=== PATIENT | female | born 1950 | race Caucasian/White ===

== ENCOUNTER 2024-06-12 06:46 | Day surgery (SDC) | payer MEDICARE, OTHER, SELFPAY ==
--- NOTE | 2024-06-11 11:56 | HPS.HSE ---
Family Physician
-
Family Physician: NO INTERVIEW UNKNOWN
Chief Complaint
-
Persistent atrial fibrillation.
History of Present Illness
The patient is a 74-year-old morbidly obese, female presenting today for persistent atrial fibrillation. She was diagnosed with atrial fibrillation 3 years ago. Soon after her diagnosis, she would undergo a cardioversion. She did maintain
normal sinus rhythm after her cardioversion for approximately 2 years. As of early January 2024, however, her arrhythmia returned. The patient reports shortness of breath with exertion, palpitations, and dizziness associated with this diagnosis.
She is rate controlled without the use of pharmacological therapy. She reports she has been compliant with Xarelto for oral anticoagulation. She notes that her current symptoms greatly interfere with her activities of daily living and overall impact
her quality of life. She is interested in pursuing pulmonary vein isolation for further arrhythmia management. Prior to undergoing pulmonary vein isolation, she will need a transesophageal echocardiogram to definitively rule out a left atrial
appendage thrombus. She denies complaints today such as chest pain and shortness of breath at rest, nausea, vomiting, lightheadedness, cough, sore throat, or fever. She does report 1 recent episode of diarrhea, but blames this episode on underlying
'dietary issues'.
Medical History
Past Medical History
Past Medical History: Reports Other
Additional Past Medical History:
1. Persistent atrial fibrillation, status post cardioversion; oral anticoagulation with Xarelto.
2. Hypertension.
3. Hypercholesterolemia.
4. Right bundle branch block.
5. Chronic diastolic heart failure, preserved ejection fraction.
6. Mild mitral regurgitation.
7. Moderate tricuspid regurgitation.
8. Childhood asthma.
9. Obstructive sleep apnea, noncompliant with CPAP.
10. GERD.
11. Colon polyps.
12. Diverticulosis.
13. Migraines.
14. Vertigo.
15. CVA per records.
16. Restless leg syndrome.
17. Lumbar degenerative disc disease.
18. Osteoarthritis, status post left total knee arthroplasty, 2013, and right total knee arthroplasty 2021.
19. Gout.
20. Recent right lower extremity cellulitis, treated with Cefuroxime.
21. Hodgkin's lymphoma, diagnosed 2018, status post chemotherapy; in remission.
22. Herpes simplex virus.
23. RSV 03/2023.
24. Depression.
25. Morbidly obese, BMI 45.0.
26. Cannibis dependence.
Past Surgical History: Reports Other
Additional Past Surgical History:
1. Cardioversion.
2. Left total knee arthroplasty.
3. Right total knee arthroplasty.
4. Lumbar laminectomy.
5. Left total ankle replacement.
6. Right ankle fusion.
7. Cholecystectomy.
8. Mastoidectomy.
9. .
10. Bilateral tubal ligation.
11. Lymph node excision.
12. Tonsillectomy.
13. Colonoscopy x5.
14. Endoscopy x2.
Social History
Tobacco: Non-smoker
Alcohol: Other (She reportedly drinks 4-5 alcoholic beverages per month.)
Drug: Marijuana (She smokes a 'couple puffs' nightly for her restless leg syndrome.)
Personal:
Living: Other (She lives with her in a 2 story home. )
Family History
Family History: Not pertinent
Allergies / Home Medications
Allergy/Medication List:
Home medications:
1. Acetaminophen 1000 mg p.o. every 6 hours as needed.
2. Albuterol-budesonide 2 inhalations every 6 hours as needed.
3. Atorvastatin 20 mg p.o. daily.
4. Fioricet 1 tablet p.o. every 6 hours as needed.
5. Cefuroxime 500 mg p.o. every 12 hours for 7 days.
6. Celebrex 200 mg p.o. daily.
7. Clindamycin 300 mg p.o. daily as needed before dental procedures.
8. Colace 100 mg p.o. daily as needed.
9. Furosemide 40 mg p.o. every evening.
10. Furosemide 40 mg p.o. every Sunday, Sunday, , and Sunday morning.
11. Furosemide 80 mg p.o. every Sunday, Sunday, and Sunday evening.
12. Lansoprazole 30 mg p.o. daily.
13. Montelukast 10 mg p.o. daily.
14. Xarelto 20 mg p.o. daily.
15. Ropinirole 2 mg p.o. at bedtime.
16. Senokot 8.6 mg p.o. daily as needed.
17. Sertraline 100 mg p.o. daily.
18. Spironolactone 25 mg p.o. every afternoon.
19. Ubrogepant 50 mg p.o. daily as needed.
20. Valacyclovir 500 mg p.o. daily.
Allergies: Adhesive tape. Demerol. Penicillin. Pollen.
Review of Systems
-
A 12 point ROS was completed and negative except as noted: Yes
Physical Exam
Vital Signs
Blood pressure 111/71. Heart rate 82. Respirations 18. Pulse ox 97% on room air.
Height 5 feet, 1 inch. Weight 108 kg. BMI 45.0.
Physical Exam
General: Well Developed, Well Nourished and No Apparent Distress
HEENT: NormoCephalic, Moist mucous membranes, Atraumatic and PERRLA
Respiratory: Clear
Cardiac: Irregular Rhythm
GI: Soft, Non Tender, Non Distended and Other (Morbidly obese. )
Musculoskeletal: Normal Gait & Station and Other (Right lower extremity cellulitis noted (undergoing treatment). )
Skin: Warm and Dry
Neuro: AO x 3 and Nonfocal/grossly intact
Laboratory Results
-
DIAGNOSTIC STUDIES as of 06/05/2024: White blood cell count 6.6. Hemoglobin 13.1. Platelet count 236,000. PT 27.9. INR 2.56. Sodium 137. Potassium 3.7. BUN 19. Creatinine 0.9. Glucose 100. Calcium 8.7. Magnesium 2.1. AST 24. ALT 23. Albumin 4.5.
Type and screen A positive.
EKG 06/05/2024: Atrial fibrillation with premature ventricular or aberrantly conducted complexes. Non-specific intraventricular conduction block.
Chest CT 06/05/2024: Normal, conventional pulmonary venous anatomy. Incomplete contrast filling versus thrombus in the anterior aspect of the left atrial appendage.
Echocardiogram 01/22/2024: Ejection fraction is 50-55%. Mild left ventricular hypertrophy. Moderately dilated left atrium. There is moderate tricuspid regurgitation and mild mitral regurgitation. Study was done while patient was in atrial
fibrillation.
Impression/Plan
-
IMPRESSION/PLAN:
1. Persistent atrial fibrillation: The patient is in need of pulmonary vein isolation with Dr. Suhas Velasquez on 06/16/2024. Prior to undergoing this, however, she will undergo a transesophageal echocardiogram with Dr. Khushi Neri on
06/12/2024 to definitively rule out a left atrial appendage thrombus. The benefits and risks of this procedure have been explained to the patient. The patient understands these risks and wishes to proceed.
== END 2024-06-12 09:58 | disposition home or self-care (01) ==
LOC: CATH 06:46
PROVIDERS: ATTENDING PHYSICIAN Internal Medicine Cardiovascular Disease; FAMILY PHYSICIAN Family Medicine; OTHER PHYSICIAN Internal Medicine Cardiovascular Disease
DX: I48.19 Other persistent atrial fibrillation (principal); I08.3 Combined rheumatic disorders of mitral, aortic and tricuspid valves; I08.8 Other rheumatic multiple valve diseases; E66.01 Morbid (severe) obesity due to excess calories; E78.00 Pure hypercholesterolemia, unspecified; I11.0 Hypertensive heart disease with heart failure; I45.10 Unspecified right bundle-branch block; Z79.01 Long term (current) use of anticoagulants; G47.33 Obstructive sleep apnea (adult) (pediatric); K21.9 Gastro-esophageal reflux disease without esophagitis; Z86.0100 Personal history of colon polyps, unspecified; K57.90 Diverticulosis of intestine, part unspecified, without perforation or abscess without bleeding; R42 Dizziness and giddiness; Z86.73 Personal history of transient ischemic attack (TIA), and cerebral infarction without residual deficits; G25.81 Restless legs syndrome; M19.90 Unspecified osteoarthritis, unspecified site; Z96.653 Presence of artificial knee joint, bilateral; M10.9 Gout, unspecified; Z92.21 Personal history of antineoplastic chemotherapy; Z85.71 Personal history of Hodgkin lymphoma; B00.9 Herpesviral infection, unspecified; Z68.42 Body mass index [BMI] 45.0-49.9, adult; F32.A Depression, unspecified; F12.20 Cannabis dependence, uncomplicated; Z90.49 Acquired absence of other specified parts of digestive tract; Z90.89 Acquired absence of other organs; Z79.899 Other long term (current) drug therapy; Z79.624 Long term (current) use of inhibitors of nucleotide synthesis; Z79.1 Long term (current) use of non-steroidal anti-inflammatories (NSAID); Z88.0 Allergy status to penicillin; Z88.5 Allergy status to narcotic agent
CPT/HCPCS: 93312; 93320; 93325

== ENCOUNTER 2024-06-16 05:48 | Day surgery (SDC) | payer MEDICARE, OTHER, SELFPAY ==
[2024-06-05 13:04] VITALS: BMI 45.0
--- NOTE | 2024-06-05 14:30 | HPS.HSE ---
Family Physician
-
Family Physician: NO INTERVIEW UNKNOWN
Chief Complaint
-
Persistent atrial fibrillation.
History of Present Illness
The patient is a 74-year-old morbidly obese, female presenting today for persistent atrial fibrillation. She was diagnosed with atrial fibrillation 3 years ago. Soon after her diagnosis, she would undergo a cardioversion. She did maintain
normal sinus rhythm after her cardioversion for approximately 2 years. As of early January 2024, however, her arrhythmia returned. The patient reports shortness of breath with exertion, palpitations, and dizziness associated with this diagnosis.
She is rate controlled without the use of pharmacological therapy. She reports she has been compliant with Xarelto for oral anticoagulation. She notes that her current symptoms greatly interfere with her activities of daily living and overall impact
her quality of life. She is interested in pursuing pulmonary vein isolation for further arrhythmia management. She denies complaints today such as chest pain and shortness of breath at rest, nausea, vomiting, lightheadedness, cough, sore throat, or
fever. She does report 1 recent episode of diarrhea, but blames this episode on underlying 'dietary issues'.
Medical History
Past Medical History
Past Medical History: Reports Other
Additional Past Medical History:
1. Persistent atrial fibrillation, status post cardioversion; oral anticoagulation with Xarelto.
2. Hypertension.
3. Hypercholesterolemia.
4. Right bundle branch block.
5. Chronic diastolic heart failure, preserved ejection fraction.
6. Mild mitral regurgitation.
7. Moderate tricuspid regurgitation.
8. Childhood asthma.
9. Obstructive sleep apnea, noncompliant with CPAP.
10. GERD.
11. Colon polyps.
12. Diverticulosis.
13. Migraines.
14. Vertigo.
15. CVA per records.
16. Restless leg syndrome.
17. Lumbar degenerative disc disease.
18. Osteoarthritis, status post left total knee arthroplasty, 2013, and right total knee arthroplasty 2021.
19. Gout.
20. Recent right lower extremity cellulitis, treated with Cefuroxime.
21. Hodgkin's lymphoma, diagnosed 2019, status post chemotherapy; in remission.
22. Herpes simplex virus.
23. RSV 03/2023.
24. Depression.
25. Morbidly obese, BMI 45.0.
26. Cannibis dependence.
Past Surgical History: Reports Other
Additional Past Surgical History:
1. Cardioversion.
2. Left total knee arthroplasty.
3. Right total knee arthroplasty.
4. Lumbar laminectomy.
5. Left total ankle replacement.
6. Right ankle fusion.
7. Cholecystectomy.
8. Mastoidectomy.
9. .
10. Bilateral tubal ligation.
11. Lymph node excision.
12. Tonsillectomy.
13. Colonoscopy x5.
14. Endoscopy x2.
Social History
Tobacco: Non-smoker
Alcohol: Other (She reportedly drinks 4-5 alcoholic beverages per month. )
Drug: Marijuana (She smokes a 'couple puffs' nightly for her restless leg syndrome. )
Personal:
Living: Other (She lives with her in a 2 story home. )
Family History
Family History: Not pertinent
Allergies / Home Medications
Allergy/Medication List:
Home medications:
1. Acetaminophen 1000 mg p.o. every 6 hours as needed.
2. Albuterol-budesonide 2 inhalations every 6 hours as needed.
3. Atorvastatin 20 mg p.o. daily.
4. Fioricet 1 tablet p.o. every 6 hours as needed.
5. Cefuroxime 500 mg p.o. every 12 hours for 7 days.
6. Celebrex 200 mg p.o. daily.
7. Clindamycin 300 mg p.o. daily as needed before dental procedures.
8. Colace 100 mg p.o. daily as needed.
9. Furosemide 40 mg p.o. every evening.
10. Furosemide 40 mg p.o. every Sunday, Sunday, , and Sunday morning.
11. Furosemide 80 mg p.o. every Sunday, Sunday, and Sunday evening.
12. Lansoprazole 30 mg p.o. daily.
13. Montelukast 10 mg p.o. daily.
14. Xarelto 20 mg p.o. daily.
15. Ropinirole 2 mg p.o. at bedtime.
16. Senokot 8.6 mg p.o. daily as needed.
17. Sertraline 100 mg p.o. daily.
18. Spironolactone 25 mg p.o. every afternoon.
19. Ubrogepant 50 mg p.o. daily as needed.
20. Valacyclovir 500 mg p.o. daily.
Allergies: Adhesive tape. Demerol. Penicillin. Pollen.
Review of Systems
-
A 12 point ROS was completed and negative except as noted: Yes
Physical Exam
Vital Signs
Blood pressure 111/71. Heart rate 82. Respirations 18. Pulse ox 97% on room air.
Height 5 feet, 1 inch. Weight 108 kg. BMI 45.0.
Physical Exam
General: Well Developed, Well Nourished and No Apparent Distress
HEENT: NormoCephalic, Moist mucous membranes, Atraumatic and PERRLA
Respiratory: Clear
Cardiac: Irregular Rhythm
GI: Soft, Non Tender, Non Distended and Other (Morbidly obese. )
Musculoskeletal: Normal Gait & Station and Other (Right lower extremity cellulitis noted (undergoing treatment). )
Skin: Other (Right lower extremity cellulitis. )
Neuro: AO x 3 and Nonfocal/grossly intact
Laboratory Results
-
DIAGNOSTIC STUDIES as of 06/05/2024: White blood cell count 6.6. Hemoglobin 13.1. Platelet count 236,000. PT 27.9. INR 2.56. Sodium 137. Potassium 3.7. BUN 19. Creatinine 0.9. Glucose 100. Calcium 8.7. Magnesium 2.1. AST 24. ALT 23. Albumin 4.5.
Type and screen A positive.
EKG 06/05/2024: Atrial fibrillation with premature ventricular or aberrantly conducted complexes. Non-specific intraventricular conduction block.
Chest CT 06/05/2024: Normal, conventional pulmonary venous anatomy. Incomplete contrast filling versus thrombus in the anterior aspect of the left atrial appendage.
Echocardiogram 01/22/2024: Ejection fraction is 50-55%. Mild left ventricular hypertrophy. Moderately dilated left atrium. There is moderate tricuspid regurgitation and mild mitral regurgitation. Study was done while patient was in atrial
fibrillation.
Impression/Plan
-
IMPRESSION/PLAN:
1. Persistent atrial fibrillation: The patient is in need of pulmonary vein isolation with Dr. Suhas Velasquez on 06/16/2024. The benefits and risks of the procedure have been explained to the patient. The patient understands these risks and
wishes to proceed. She is aware to continue Xarelto uninterrupted prior to her procedure. She will take no medications the morning of her ablation. Given her pre-ablation chest CT could not definitively rule out a left atrial appendage thrombus, she
will need to undergo a transesophageal echocardiogram prior. This has been scheduled for 06/12/[address] Khushi Neri.
2. Recent right lower extremity cellulitis: The patient notified Dr. Velasquez's office of this recent diagnosis through phone call on 06/03/2023. She was examined at the start of antibiotic therapy during preadmission testing. She was advised to
update Dr. Velasquez's office should her cellulitis not improve with Cefuroxime or should it worsen. She was also advised to call her primary care physician if further treatment is needed.
[2024-06-16] VITALS (12 sets, daily range): BP systolic 122–147; BP diastolic 51–77; BMI 46.3
--- NOTE | 2024-06-16 07:27 | ITS.CL.ABL ---
[employer] - Ablation
Ablation
Procedure Report:
ELECTROPHYSIOLOGIC STUDY AND POSSIBLE ABLATION
DATE: June 16, 2024
Primary Care Provider: DR Laury Chow
Primary Drivability Technician: Dr Emmanuel Sebastian
INDICATION:
Symptomatic Atrial Fibrillation.
Persistent
HISTORY: See H and P.
Symptomatic AF, poorly controlled with attempted medical therapy
HAS-BLED: 2
Age
h/o CVA
CHADSVASc: 6
CHF, NYHA Class 3, HFpEF
HTN
Age
h/o Stroke
Gender
PRESENTING RHYTHM: AF
HISTORY: See H and P.
Symptomatic AF, poorly controlled with attempted medical therapy.
ANTICOAGULATION: Rivaroxaban
'TIME-OUT': called and confirmed.
SEDATION/ANESTHESIA: provided via the anesthesia department using general anesthesia.
PROCEDURE:
Ultrasound Guidance with real-time visualization of needle insertion and vessel patency performed by wi for femoral venous Vascular Access. Images were taken and saved for the patient's permanent record. Imaging findings typical femoral venous
anatomy. Direct visualization of needle puncture into the femoral vein was observed and recorded.
The intracardiac ultrasound catheter was positioned in the RA for continuous intracardiac ultrasound imaging.
Heparin bolus and infusion to target ACT at 300 -350 seconds was administered. Transseptal puncture was performed. This entailed advancing a sheath with dilator into the superior vena cava and withdrawing both (monitoring intracardiac ultrasound,
fluoroscopy and tip pressure) with the tip oriented toward the atrial septum. The fossa ovalis was engaged (indicated by sudden displacement of the sheath tip as well as tenting of the fossa seen on intracardiac ultrasound).
Transseptal puncture was performed. Left atrial catheter position was confirmed by echocardiographic imaging, pressure monitoring (LA mean pressure 16 mm Hg) and fluoroscopy. The sheath was advanced over the dilator and positioned in the left
atrium.
[employer] multipolar mapping/ablation Sphere-9 catheter was positioned through the transseptal sheath for high density mapping.
Geometry and voltage mapping was performed using the [employer] mapping system for three-dimensional electroanatomical mapping.
A 3-D map was created using Ensite[employer]X in Voxel mode. A 3-D reconstructed CT image was compared to the 3-D N[employer] map to assist in anatomic evaluation, mapping and ablation.
Catheter positioning was guided and confirmed using both I.C.E. and fluoroscopy.
PV isolation approach was used to electrically isolate each PV ostia (LSPV, LIPV, RSPV, RIPV).
Additional energy applications/additional ablation set was required to accomplish wide area circumferential ablation around each of the pulmonary vein sets and additionally ablation to accomplish LA posterior wall ablation.
Remapping with the Sphere-9 catheter found that all PVPs were eliminated at each vein demonstrating entrance block. Also pacing around the the circumference of the ostia was performed at 10 ma and 2.0 msec output to assess for exit block. This
demonstrated electrical isolation at each of the pulmonary vein ostia (LSPV, LIPV, RSPV, RIPV). There is also entrance and exit block at the LA posterior wall.
Programmed electrostimulation failed to induce any sustained arrhythmias.
I.C.E. :
Pre-Ablation Post-Ablation
LVEF: 55 % 55 %
WMA: none none
Pericardial effusion: none none
COMPLICATIONS:
None
SUMMARY:
- Mapping and ablation to isolate the PVs
- Additional AF ablation set after PVI.
- 3-D Electroanatomical Mapping
- Intracardiac Ultrasound
- Ultrasound guidance for vascular access
Post ablation, I discussed today's findings and results with the patient's , Alexi.
RECOMMENDATIONS:
- Observe in monitored bed.
- Maintain oral anticoagulation.
- Office visit with Dr Sebastian in 3-4 months.
Copy to:
DR Laury Chow
Dr Emmanuel Sebastian
[2024-06-16 08:43] LABS: ACT-LR - POC 374 Seconds (116-155)
[2024-06-16 09:01] LABS: ACT-LR - POC 366 Seconds (116-155)
[2024-06-16 09:27] LABS: ACT-LR - POC 397 Seconds (116-155)
--- NOTE | 2024-06-16 14:28 | W.PN.UPDATE ---
Update Note
Progress Note Update
Pt seen post PFA. RIght groin site without ht/bleeding, non tender. OOB ambulating, urinating without difficulty. Post EKG NSR 70s w/1st deg AVB/RBBB as before. Resume xarelto tonight at usual time, continue other meds as before. Followup with
Romulo as scheduled. Home today if groin site/tele remain stable.
== END 2024-06-16 14:45 | disposition home or self-care (01) ==
LOC: CATH 05:48
PROVIDERS: ATTENDING PHYSICIAN Internal Medicine Cardiovascular Disease; FAMILY PHYSICIAN Family Medicine; OTHER PHYSICIAN Internal Medicine Cardiovascular Disease
DX: I48.19 Other persistent atrial fibrillation (principal); E66.01 Morbid (severe) obesity due to excess calories; R00.2 Palpitations; R06.02 Shortness of breath; Z92.21 Personal history of antineoplastic chemotherapy; I11.0 Hypertensive heart disease with heart failure; E78.00 Pure hypercholesterolemia, unspecified; I45.10 Unspecified right bundle-branch block; I08.1 Rheumatic disorders of both mitral and tricuspid valves; G47.33 Obstructive sleep apnea (adult) (pediatric); K21.9 Gastro-esophageal reflux disease without esophagitis; Z86.0100 Personal history of colon polyps, unspecified; Z86.73 Personal history of transient ischemic attack (TIA), and cerebral infarction without residual deficits; R42 Dizziness and giddiness; K57.90 Diverticulosis of intestine, part unspecified, without perforation or abscess without bleeding; G25.81 Restless legs syndrome; M51.369 Other intervertebral disc degeneration, lumbar region without mention of lumbar back pain or lower extremity pain; M19.90 Unspecified osteoarthritis, unspecified site; Z96.653 Presence of artificial knee joint, bilateral; Z85.71 Personal history of Hodgkin lymphoma; M10.9 Gout, unspecified; B00.9 Herpesviral infection, unspecified; Z68.42 Body mass index [BMI] 45.0-49.9, adult; F32.A Depression, unspecified; F12.20 Cannabis dependence, uncomplicated; Z90.49 Acquired absence of other specified parts of digestive tract; Z90.89 Acquired absence of other organs; Z79.899 Other long term (current) drug therapy; Z79.01 Long term (current) use of anticoagulants; Z79.1 Long term (current) use of non-steroidal anti-inflammatories (NSAID)
CPT/HCPCS: C1892; C1759; C1766; 76937; 85347; 86900; 86901; 93005; 93656; 93657